=== PATIENT | female | born 1985 | race Caucasian/White ===

== ENCOUNTER → 2021-01-06 10:19 | Outpatient (CLI) | payer BC, SELFPAY ==
--- NOTE | 2021-01-06 10:24 | XR_ITS ---
PROCEDURE: XR FOOT WT BEARING LT 3V CLINICAL INDICATION: Pain COMPARISON: No exams were available for comparison FINDINGS: No fracture or dislocation. No lytic or blastic change. There is normal mineralization. The joint spaces are well-preserved. No significant degenerative/arthritic changes. No erosive changes evident. Other findings:None. IMPRESSION: No acute findings. Dictated by: Taj Valencia MD 01/06/2021 15:45 Taj Valencia MD in [facility] 01/06/2021 15:45
--- NOTE | 2021-01-06 10:24 | XR_ITS ---
PROCEDURE: XR FOOT WT BEARING RT 3V CLINICAL INDICATION: pain COMPARISON: No exams were available for comparison FINDINGS: No fracture or dislocation. No lytic or blastic change. There is normal mineralization. The joint spaces are well-preserved. No significant degenerative/arthritic changes. No erosive changes evident. mild hypertrophic changes distal aspect of 1st metatarsal IMPRESSION: Hypertrophic change distal aspect 1st metatarsal otherwise negative Dictated by: Taj Valencia MD 01/06/2021 15:45 Taj Valencia MD in [facility] 01/06/2021 15:45
== END ==
PROVIDERS: PCP Family Medicine; Visit Provider Podiatrist
DX: M72.2 Plantar fascial fibromatosis (principal); M76.61 Achilles tendinitis, right leg; M76.62 Achilles tendinitis, left leg
CPT/HCPCS: 73630